=== PATIENT | male | born 1970 | race Caucasian/White ===

== ENCOUNTER → 2019-04-20 | Day surgery (SDC) | payer OTHER ==
[~2019-04-20] MED LIST: IV RINGERS,LACTATED 1000ML 1,000 ML IV ONE; PROPOFOL 20 ML IV ONE; PROPOFOL 40 ML IV ONE
[2019-04-20 10:55] VITALS: BP 122/73
--- NOTE | 2019-04-20 11:04 | HP ---
ADMIT DATE: 04/20/2019 REFERRING PHYSICIAN: Sandra May MD. HISTORY: A 48-year-old male, whose past medical history is noncontributory, is seen for screening colon exam. Bowel habits are regular without diarrhea or constipation. There has been no melena and/or hematochezia. Weight and appetite are stable. He is otherwise without additional complaints and has not undergone previous screening studies. PAST MEDICAL HISTORY: Noncontributory. ALLERGIES: None. MEDICATIONS: None. FAMILY HISTORY: Significant for bleeding disorder with mother, breast cancer with the sister, diabetes with the mother. SOCIAL HISTORY: He is a nonsmoker, social drinker. PAST SURGICAL HISTORY: Back surgery and tonsillectomy. REVIEW OF SYSTEMS: As per records. PHYSICAL EXAMINATION: GENERAL: Reveals a well-nourished, well-developed male who is alert, cooperative, in no acute distress. VITAL SIGNS: Temperature is 97.5, pulse 64, respiratory rate is 20. HEENT: Reveals normocephalic, atraumatic head. Pupils and extraocular muscles are not tested. Sclerae anicteric. NECK: Supple. LUNGS: Clear. CARDIOVASCULAR: Reveals an S1, S2 without S3, S4 or appreciable murmur. ABDOMEN: Reveals a soft abdomen, normal bowel sounds, without appreciable hepatosplenomegaly. EXTREMITIES: Reveals no cyanosis, clubbing or edema. IMPRESSION: Colorectal screening is warranted at this time. Risks and benefits of the procedure including risk of hemorrhage and perforation were discussed, who is willing to proceed. STEVE KRUEGER MD DR: JB/kimberly JOB#: [id number] / [id number]
== END ==
LOC: SURG 09:04
PROVIDERS: ATTEND Family Medicine
DX: Z12.11 Encounter for screening for malignant neoplasm of colon (principal); K64.0 First degree hemorrhoids; K63.89 Other specified diseases of intestine; Z72.89 Other problems related to lifestyle; Z98.890 Other specified postprocedural states
CPT/HCPCS: 45378; J2704